=== PATIENT | female | born 2000 | race Two or more races ===

== ENCOUNTER → 2018-08-15 | Emergency (ER) | payer OTHER | END | disposition left against medical advice (07) | LOC: ER 18:26 | DX: O26.891 Other specified pregnancy related conditions, first trimester (principal); R11.2 Nausea with vomiting, unspecified; Z53.21 Procedure and treatment not carried out due to patient leaving prior to being seen by health care provider; Z3A.01 Less than 8 weeks gestation of pregnancy ==

== ENCOUNTER 2020-07-21 13:38 | Emergency (ER) | payer MEDICAID, OTHER ==
[~2020-07-21] VITALS: Ht 165.1 cm; Wt 67.1 kg
[2020-07-21 13:46] VITALS: BP 116/78
[2020-07-21] MEDS ORDERED: TERBUTALINE SULFATE 1 MG/ML 1ML VIAL SC SCH (15:15)
[2020-07-21] MEDS ORDERED: PREN-96 PO (16:13)
== END 2020-07-21 16:05 | disposition home or self-care (01) ==
LOC: ER 13:38 → LDRP 13:58 → ER 13:58 → LDRP 14:05
PROVIDERS: ADMIT Obstetrics & Gynecology; ATTEND Obstetrics & Gynecology
DX: O26.893 Other specified pregnancy related conditions, third trimester (principal); R10.30 Lower abdominal pain, unspecified; Z3A.34 34 weeks gestation of pregnancy
CPT/HCPCS: 59025; 76805; 81002; 96372; 99284; G0378; J3105

== ENCOUNTER 2020-08-07 11:01 | Observation (INO) | payer MEDICAID ==
[~2020-08-07] VITALS: Ht 167.6 cm; Wt 81.6 kg
[~2020-08-07 11:01] MED LIST: PREN-96 PO
[2020-08-07] MEDS ORDERED: D5W/LACTATED RINGERS 1,000 ML IV SCH (12:15)
[2020-08-07] MEDS ORDERED: TERBUTALINE SULFATE 1 MG/ML 1ML VIAL SC SCH (12:15)
[2020-08-07] MEDS ORDERED: TERBUTALINE SULFATE 1 MG/ML 1ML VIAL SC ONE (12:24)
[2020-08-07 13:49] LABS: Amphetamine Screen, Urine NEGATIVE (NEGATIVE); Barbiturate Scree,Urine NEGATIVE (NEGATIVE); Benzodiazephine Screen, Urine NEGATIVE (NEGATIVE); Cannabinoid Screen, Urine POSITIVE (NEGATIVE); Cocaine Screen, Urine NEGATIVE (NEGATIVE); Opiate Scree,Urine NEGATIVE (NEGATIVE); Phencyclidine Screen, Urine NEGATIVE (NEGATIVE)
[2020-08-07] MEDS ORDERED: BETAMETHASONE ACET (6MG/ML) 5ML VIAL IM SCH (14:00)
[2020-08-08] MEDS ORDERED: BETAMETHASONE ACET (6MG/ML) 5ML VIAL IM SCH (10:00)
== END 2020-08-07 14:25 | disposition home or self-care (01) ==
LOC: LDRP 11:01
PROVIDERS: ADMIT Specialist; ATTEND Specialist
DX: O60.03 Preterm labor without delivery, third trimester (principal); Z3A.36 36 weeks gestation of pregnancy
CPT/HCPCS: 59025; 80307; 81002; 96360; 96361; 96372; G0378; J0702; J3105

== ENCOUNTER 2021-08-06 11:37 | Observation (INO) | payer MEDICAID ==
[~2021-08-06] VITALS: Ht 165.1 cm; Wt 63.0 kg
[2021-08-06] MEDS ORDERED: ONDANSETRON HCL 4 MG/2 ML VIAL IM ONE (12:15)
[2021-08-06] MEDS ORDERED: LACTATED RINGER'S 1,000 ML IV ONE (12:15)
[2021-08-06 12:45] LABS: Urine Bacteria NONE SEEN /hpf (None Seen); Urine Blood Negative /uL (Negative); Urine Hyaline Cast FEW /lpf (0 - 2); Urine Mucus FEW (None Seen); Urine Sperm PRESENT /hpf (None Seen); Urine WBC 1 /hpf (0 - 5)
[2021-08-06 12:57] LABS: Amphetamine Screen, Urine NEGATIVE (NEGATIVE); Barbiturate Scree,Urine NEGATIVE (NEGATIVE); Benzodiazephine Screen, Urine NEGATIVE (NEGATIVE); Cannabinoid Screen, Urine POSITIVE (NEGATIVE); Cocaine Screen, Urine NEGATIVE (NEGATIVE); Opiate Scree,Urine NEGATIVE (NEGATIVE); Phencyclidine Screen, Urine NEGATIVE (NEGATIVE)
[2021-08-06] MEDS ORDERED: ONDANSETRON HCL 4 MG/2 ML VIAL IV ONE (13:45)
== END 2021-08-06 14:48 | disposition home or self-care (01) ==
LOC: LDRP 11:37
PROVIDERS: ADMIT Obstetrics & Gynecology; ATTEND Obstetrics & Gynecology
DX: O62.9 Abnormality of forces of labor, unspecified (principal); Z20.822 Contact with and (suspected) exposure to COVID-19; O21.2 Late vomiting of pregnancy; O26.892 Other specified pregnancy related conditions, second trimester; R05.9 Cough, unspecified; R19.7 Diarrhea, unspecified; Z3A.27 27 weeks gestation of pregnancy; Z79.899 Other long term (current) drug therapy
CPT/HCPCS: 36415; 59025; 76805; 80307; 81001; 81002; 87426; 96361; 96374; G0378; J2405; 96360

== ENCOUNTER 2024-10-06 08:56 | Emergency (ER) | payer MEDICAID ==
[~2024-10-06] VITALS: Ht 167.6 cm; Wt 51.7 kg
[2024-10-06 09:18] VITALS: BP 121/91; PULSE 100; RESP 18; TEMP 98.1; O2SAT 100
--- NOTE | 2024-10-06 09:22 | ED.PDOC ---
History of Present Illness HPI Comments 24 year old female presents to the ED for the c/c of Abnormal Vaginal Bleeding. Pt states that she had a Miscarriage 1x month ago, but notes that she recently took an at home test and the result was positive. Pt states that she started having cramps, and abnormal spotting this morning prompting her visit to the ED. No other symptoms or modifying factors reported at this time. Patient is alert and oriented x4 and has a stable gait. Time Seen by MD: 09:19 Reviewed Notes: Nurses Notes, Medications, Allergies Allergies: Coded Allergies: No Known Drug Allergy (Verified Allergy, Unknown, 07/21/20) Home Meds Reported Medications Vit W/ Ferrous Fumara ( One Daily) Daily Tab, 1 TAB PO DAILY, #90 TAB 3 Refills 07/21/20 Information Source: Patient Mode of Arrival: Ambulatory Severity: Moderate Timing: Hours Duration: Since onset, Hours Prehospital treatment: None Past Medical History PAST MEDICAL HISTORY: Denies Surgical History: Denies all surgeries MEDIA PLANNER / BUYER History: No Pertinent MEDIA PLANNER / BUYER History Family History Family History: Reviewed,noncontributory to illness Social History Smoker: Non-Smoker Alcohol: Denies ETOH Use Drugs: Denies Drug Use Lives In: Home Constitutional: denies: chills, diaphoresis, fatigue, fever, malaise, sweats, weakness, others EENTM: denies: blurred vision, double vision, ear bleeding, ear discharge, ear drainage, ear pain, ear ringing, eye pain, eye redness, hearing loss, mouth pain, mouth swelling, nasal discharge, nose bleeding, nose congestion, nose pain, photophobia, tearing, throat pain, throat swelling, voice changes, others Respiratory: denies: cough, hemoptysis, orthopnea, SOB at rest, shortness of breath, SOB with excertion, stridor, wheezing, others Cardiovascular: denies: chest pain, dizzy spells, diaphoresis, Dyspnea on exertion, edema, irregular heart beat, left arm pain, lightheadedness, palpitations, PND, syncope, others Gastrointestinal: denies: abdomen distended, abdominal pain, blood streaked bowels, constipated, diarrhea, dysphagia, difficulty swallowing, hematemesis, melena, nausea, poor appetite, poor fluid intake, rectal bleeding, rectal pain, vomiting, others Genitourinary: reports: abnormal vagina bleeding; denies: burning, dyspareunia, dysuria, flank pain, frequency, hematuria, incontinence, pain, , vagina discharge, urgency, others Neurological: denies: dizziness, fainting, headache, left sided numbness, left sided weakness, numbness, paresthesia, pre-existing deficit, right sided numbness, right sided weakness, seizure, speech problems, tingling, tremors, weakness, others Musculoskeletal: denies: back pain, gout, joint pain, joint swelling, muscle pain, muscle stiffness, neck pain, others Integumetry: denies: bruises, change in color, change in hair/nails, dryness, laceration, lesions, lumps, rash, wounds, others Allergic/Immunocompromised: denies: Difficulty Healing, Frequent Infections, Hives, Itching, others Hematologic/Lymphatic: denies: anemia, blood clots, easy bleeding, easy bruising, swollen glands, others Endocrine: denies: excessive hunger, excessive sweating, excessive thirst, excessive urination, flushing, intolerance to cold, intolerance to heat, unexplained weight gain, unexplained weight loss, others Psychiatric: denies: anxiety, bipolar disorder, depression, hopeless, panic disorder, schizophrenia, sleepless, suicidal, others All Other Systems: Reviewed and Negative Physical Exam General Appearance: No Apparent Distress, Normal, Other () HEENT: Normal ENT Inspection, PERRL/EOMI, Pharynx Normal, TMs Normal Neck: Full Range of Motion, Non-Tender, Normal, Normal Inspection Respiratory: Chest Non-Tender, Lungs Clear, No Accessory Muscle Use, No Respiratory Distress, Normal Breath Sounds Cardiovascular: No Edema, No JVD, No Murmur, Normal Peripheral Pulses, Regular Rate/Rhythm Breast Exam: Deferred Gastrointestinal: Distended, Non Tender (pain), No Pulsatile Mass, Normal Bowel Sounds, Soft, Suprapubic, Other (Most probably is still ) Genitalia: Deferred Pelvic: Deferred, Vaginal Bleeding Rectal: Deferred Extremities: No calf tenderness, Normal capillary refill, Normal inspection, N ormal range of motion, Non-tender, No pedal edema Musculoskeletal : Apperance: Normal Neurologic: Alert, dryerman/woman II-XII nml as Tested, No Motor Deficits, Normal Affect, Normal Mood, No Sensory Deficits Cerebellar Function: Normal Reflexes: Normal Skin: Dry, Normal Color, Warm Peripheral Pulses: 1+ carotid (R), 1+ carotid (L) Lymphatic: No Adenopathy Was a procedure done? 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 Patient Education/Counseling: Diagnosis, Treatment, Prognosis, Need For Follow Up Family Education/Counseling: Diagnosis, Treatment, Prognosis, Need For Follow Up, No Family Present SEPSIS Sepsis Screen Vital Signs Date Time Temp Pulse Resp B/P (MAP) Pulse Ox O2 Delivery O2 Flow Rate FiO2 10/06/24 09:18 98.1 100 18 121/91 (101) 100 98.1 Departure 1 Departure Time of Disposition: 09:55 Impression: Primary Impression: Abdominal pain in Qualified Codes: O26.891 - Other specified related conditions, first trimester; R10.9 - Unspecified abdominal pain Additional Impression: Vaginal bleeding Disposition: LEFT AWOL/ELOPED Condition: Fair Discharged With: Self Critical Care Note Critical Care Time?: No Stability Stability form required: No Heart Score Heart Score: Heart Score Response (Comments) Value History N/A 0 EKG N/A 0 Age <45 0 Risk Factors No known risk factors 0 Troponin N/A 0 Total 0 I personally scribed for СЕРГЕЙ ESTRADA MD ([email or web address]) on 10/06/24 at 09:22. Electronically submitted by Asael Stapleton ([email or web address]). СЕРГЕЙ ESTRADA MD Oct 06, 2024 09:22
== END 2024-10-06 13:09 | disposition left against medical advice (07) ==
LOC: ER 08:56
DX: O26.891 Other specified pregnancy related conditions, first trimester (principal); R10.9 Unspecified abdominal pain; O20.9 Hemorrhage in early pregnancy, unspecified; Z3A.00 Weeks of gestation of pregnancy not specified; Z79.899 Other long term (current) drug therapy